=== PATIENT | male | born 1995 | race Caucasian/White ===

== ENCOUNTER 2021-01-05 09:41 | Inpatient (IN) | payer BC ==
[~2021-01-05] VITALS: Ht 180.3 cm; Wt 77.1 kg
--- NOTE | 2021-01-05 09:54 | NUR ---
patient came in the er c/o abd pain, 7/10 pain scale. On room air, breathing evenly and unlabored, Connected to the monitor and pulse ox. Kept comfortable, will continue to monitor accordingly.
--- NOTE | 2021-01-05 09:55 | NUR ---
URINE SPECIMEN COLLECTED AND SENT TO LAB.
--- NOTE | 2021-01-05 09:56 | NUR ---
IV started on the RAC G18, blood drawned and sent to lab.
[2021-01-05] MEDS ORDERED: KETOROLAC TROMETHAMINE 15 MG/ML VIAL ONE (10:16)
[2021-01-05 10:29] LABS: BASOPHILS # (AUTO) 0.1 K/uL (0.0-0.2); BASOPHILS % (AUTO) 0.9 % (0.0-2.0); EOSINOPHILS % (AUTO) 2.2 % (0.0-6.0); HEMATOCRIT 44 % (39-51); HEMOGLOBIN 14.7 g/dL (13.5-17.5); LYMPHOCYTES # (AUTO) 0.8 K/uL (0.8-4.8); LYMPHOCYTES % (AUTO) 9.6 % (20.0-44.0); MEAN CORPUSCULAR HGB CONC 34 g/dl (31.0-36.0); MEAN CORPUSCULAR VOLUME 87 fL (80-96); MONOCYTES # (AUTO) 0.6 K/uL (0.1-1.30); MONOCYTES % (AUTO) 6.5 % (2.0-12.0); NEUTROPHILS % (AUTO) 80.8 % (43.0-81.0); PLATELET COUNT (AUTO) 223 K/uL (150-450); RED BLOOD CELL COUNT(AUTO) 5.05 MIL/uL (4.5-6.0); WHITE BLOOD COUNT (AUTO) 8.7 K/uL (4.3-11.0)
[2021-01-05] MEDS ORDERED: KETOROLAC TROMETHAMINE INJ 30 MG/ML VIAL IV ONE (10:30)
[2021-01-05] MEDS ORDERED: IV NS 0.9% 250 ML IV ONE (10:34)
[2021-01-05] MEDS ORDERED: IOHEXOL-300 100 ML VIAL IV ONE (10:34)
[2021-01-05 10:35] LABS: CALCIUM, SERUM 9.4 mg/dL (8.5-10.1); CARBON DIOXIDE 30 mmol/L (21-32); CHLORIDE 103 mmol/L (98-107); CREATININE 0.9 mg/dL (0.6-1.3); GLUCOSE 96 mg/dL (74-106); POTASSIUM 4.2 mmol/L (3.5-5.1); SODIUM SERUM 140 mmol/L (136-145); UREA NITROGEN, BLOOD 11 mg/dL (7-18)
[2021-01-05 10:41] LABS: ALANINE AMINOTRANSFERASE 20 U/L (12-78); ALBUMIN 4.3 g/dL (3.4-5.0); ALKALINE PHOSPHATASE 69 U/L (46-116); ASPARTATE AMINOTRANSFERASE 14 U/L (15-37); BILIRUBIN,DIRECT 0.2 mg/dL (0.0-0.2); BILIRUBIN,TOTAL 0.9 mg/dL (0.2-1.0); LIPASE 71 U/L (73-393); TOTAL PROTEIN, SERUM 8.1 g/dL (6.4-8.2)
--- NOTE | 2021-01-05 10:46 | NUR ---
PT IS WHEELED TO CT SCAN VIA [facility].
--- NOTE | 2021-01-05 11:32 | NUR ---
MOVE SHEET SUBMITTED AND CALLED FOR MS BED.
[2021-01-05] MEDS ORDERED: PIPERACILLIN /TAZOBACTAM 3.375 G in IV D5W 50 ML IV ONE (12:00)
--- NOTE | 2021-01-05 12:17 | NUR ---
covid swab collected and sent to lab.
[2021-01-05 12:39] LABS: BILIRUBIN,URINE SMALL (NEGATIVE); COLOR,URINE YELLOW (YELLOW); LEUKOCYTE ESTERASE ,URINE Negative (NEGATIVE); NITRITE, URINE Negative (NEGATIVE); PH,URINE 5.5 (5.0-8.0); PROTEIN,URINE 30 mg/dl (NEGATIVE); UGLUCOSE Negative (NEGATIVE); UROBILINOGEN,URINE 0.2 EU/dL (0.2)
--- NOTE | 2021-01-05 12:46 | NUR ---
[facility] PAGED
--- NOTE | 2021-01-05 12:47 | NUR ---
Supriya herring in [facility] - 01/05/21 at 1248 by MARLON CALLED SURGERY ON V
--- NOTE | 2021-01-05 12:48 | NUR ---
SURGERY PARIMUTUEL CLERK CALLED AND SPEAKING WITH TEDDY GOMEZ
--- NOTE | 2021-01-05 12:48 | NUR ---
[facility] PAGED. AWAITING HOSPITALIST CALL BACK. (JANIA LOWRY)
[2021-01-05 12:56] LABS: BACTERIA,URINE None seen /HPF (None Seen); WBC,URINE NONE SEEN /HPF (0-3)
--- NOTE | 2021-01-05 13:00 | NUR ---
MS/RN RECEIVING NOTES RECEIVED PATIENT A TRANSFER FROM ER VIA [facility]. ADMITTED TO [facility]. PATIENT IS ALERT AND ORIENTED X4, ABLE TO MAKE NEEDS KNOWN. AMBULATORY. SKIN IS INTACT. PATIENT IS STABLE ON ROOM AIR. SOME DISCOMFORTS REPORTED ON THE LOWER ABDOMEN. IV ACCESS ON RIGHT AC #18G IS INTACT AND PATENT ON SALINE LOCK. ORIENTED PATIENT TO THE FACILITY. EDUCATED PATIENT REGARDING ACUTE APPENDICITIS DIAGNOSIS. PATIENT ABLE TO VERBALIZED UNDERSTANDING. SAFETY PRECAUTIONS OBSERVED: BED LOCKED ON LOWEST POSITION, SIDE RAILS UP X2, CALL LIGHT WITHIN REACH. WILL MONITOR.
--- NOTE | 2021-01-05 13:11 | NUR ---
GOT BED 329-2
--- NOTE | 2021-01-05 13:27 | NUR ---
wheeled patient via gurney accompanied by EMT in no distress. RN assigned to patient at bedside to assume care.
[2021-01-05 13:40] VITALS: BP 123/67
[2021-01-05] MEDS ORDERED: BUPIVACAINE MPF 0.5% W/EPI INJ 30 ML VIAL ONE (14:27)
--- NOTE | 2021-01-05 14:27 | NUR ---
MS/RN NOTES- SURGERY PATIENT TRANSFERRED TO SURGERY UNIT FOR LAPAROSCOPIC APPENDECTOMY POSSIBLE OPEN
[2021-01-05] MEDS ORDERED: FENTANYL PF 100MCG/2ML AMPUL ONE (14:28)
[2021-01-05] MEDS ORDERED: MIDAZOLAM HCL 2 MG/2ML VIAL ONE (14:29)
[2021-01-05] MEDS ORDERED: MORPHINE SULFATE INJ 2 MG/ML DISP.SYRIN IV PRN ×2 (14:30→16:30)
[2021-01-05] MEDS ORDERED: ONDANSETRON HCL/PF 4 MG/2 ML VIAL IVP PRN ×2 (14:30→16:30)
[2021-01-05] MEDS ORDERED: GLYCOPYRROLATE 0.2 MG/ML VIAL ONE (15:14)
--- NOTE | 2021-01-05 16:30 | NUR ---
MS/RN NOTES PATIENT CAME BACK FROM SURGERY: S/P LAPAROSCOPIC APPENDECTOMY, OPEN WITH DR. HALL. 3 SURGICAL SITES NOTED ON THE ABDOMEN COVERED IN DRESSING. PATIENT IS ALERT AND ORIENTED X4, ABLE TO MAKE NEEDS KNOWN. STABLE ON ROOM AIR WITH O2 SAT READING OF 100%. V/S TAKEN FOLLOWS: BP-113/65, HR-67, RR-18, T-97.5. SOME DISCOMFORTS NOTED. AMBULATE OUT OF BED TOLERATED AND PAIN MANAGEMENT PER MD ORDER. WILL CONTINUE TO MONITOR PATIENT.
[2021-01-05] MEDS: HYDROCODONE/APAP 5/325MG TABLET PO PRN ×2 (19:31→23:12)
--- NOTE | 2021-01-05 19:40 | NUR ---
MS/RN CLOSING NOTES PATIENT IS STABLE AT THIS TIME. ALL NEEDS MET. WILL ENDORSE TO THE NEXT SHIFT FOR BEATA.
--- NOTE | 2021-01-05 19:55 | NUR ---
MS RN OPENING NOTES RECEIVED PT IN BED, AWAKE. AOx4. ABLE TO MAKE NEEDS KNOWN. ON RA AND TOLERATING WELL. NO SOB NOTED. NO S/SX OF RESPIRATORY DISTRESS NOTED. IV ACCESS IN R AC #18G. COMPLAINTS OF 6/10 PAIN. ADMINISTERED NORCO @ 1931 PER MD ORDER. SAFETY PRECAUTIONS IN PLACE: BED IN LOWEST, LOCKED POSITION, SIDERAILS UPx2, AND BRAKES ON. TABLE AND CALL LIGHT WITHIN REACH. WILL CONTINUE TO MONITOR. Addendum: 01/06/21 at 0025 by TARAH BRIGGS RN 3 BANDAGES ON LOWER ABDOMEN S/P LAPAROSCOPIC APPENDECTOMY. BANDAGES ARE INTACT, CLEAN, AND DRY. NO SANGUINEOUS DRAINAGE PRESENT.
[2021-01-05] MEDS: IV 1/2NS 1000 ML 1,000 ML IV PRN (20:13)
[2021-01-05 20:18] VITALS: BP 117/60
--- NOTE | 2021-01-05 23:12 | NUR ---
ADMINISTERED NORCO FOR PAIN PER MD ORDER. WILL CONTINUE TO MONITOR. Addendum: 01/06/21 at 0701 by TARAH BRIGGS RN REPEATED NOTE. PLEASE IGNORE.
--- NOTE | 2021-01-05 23:12 | NUR ---
ADMINISTERED NORCO PER MD ORDER FOR PAIN. WILL CONTINUE TO MONITOR.
--- NOTE | 2021-01-06 07:00 | NUR ---
MS RN CLOSING NOTES PT IN BED, AWAKE. AOx4. ABLE TO MAKE NEEDS KNOWN. ON RA AND TOLERATING WELL. NO SOB NOTED. NO S/SX OF RESPIRATORY DISTRESS NOTED. IV ACCESS IN R AC #18G. TREATED PAIN THROUGHOUT SHIFT. ALL NEEDS MET. PT KEPT CLEAN AND DRY. SAFETY PRECAUTIONS IN PLACE: BED IN LOWEST, LOCKED POSITION, SIDERAILS UPx2, AND BRAKES ON. TABLE AND CALL LIGHT WITHIN REACH. WILL ENDORSE TO ONCOMING SHIFT.
[2021-01-06] MEDS: HYDROCODONE/APAP 5/325MG TABLET PO PRN (07:24)
--- NOTE | 2021-01-06 07:31 | NUR ---
MS RN OPENING NOTES RECEIVED PT IN BED AWAKE AND WATCHING TV. A/O X4. ABLE TO MAKE NEEDS KNOWN, C/O PAIN ON HIS OPERATIVE SITES ON ABDOMEN, 6/10 SCALE, PRN NORCO 5/325 PO GIVEN AT 0724. 3 DRESSINGS ON LOWER ABDOMEN C/D/I. ON ROOM AIR, TOLERATING WELL, BREATHING EVEN AND UNLABORED. IV ACCESS IN RAC #18G INTACT AND PATENT, IVF OF 1/2 NS @ 75ML/HR INFUSING WELL, NO S/S OF INFILTRATION NOTED. SAFETY PRECAUTIONS IN PLACE: BED IN LOWEST LOCKED POSITION, SIDE-RAILS UP x2, BEDSIDE TABLE AND CALL LIGHT WITHIN EASY REACH OF PT. WILL CONTINUE TO MONITOR.
[2021-01-06 08:00] VITALS: BP 109/61
[2021-01-06 08:12] LABS: BASOPHILS % (AUTO) 0.1 % (0.0-2.0); EOSINOPHILS % (AUTO) 0.2 % (0.0-6.0); HEMATOCRIT 40 % (39-51); HEMOGLOBIN 13.3 g/dL (13.5-17.5); LYMPHOCYTES # (AUTO) 1.2 K/uL (0.8-4.8); LYMPHOCYTES % (AUTO) 13.4 % (20.0-44.0); MEAN CORPUSCULAR HGB CONC 34 g/dl (31.0-36.0); MEAN CORPUSCULAR VOLUME 87 fL (80-96); MONOCYTES # (AUTO) 0.6 K/uL (0.1-1.30); MONOCYTES % (AUTO) 7.3 % (2.0-12.0); NEUTROPHILS # (AUTO) 6.9 K/uL (1.8-8.9); PLATELET COUNT (AUTO) 223 K/uL (150-450); RED BLOOD CELL COUNT(AUTO) 4.52 MIL/uL (4.5-6.0); WHITE BLOOD COUNT (AUTO) 8.8 K/uL (4.3-11.0)
[2021-01-06] MEDS ORDERED: PANTOPRAZOLE 40 MG VIAL IV SCH (09:00)
[2021-01-06 09:31] LABS: CALCIUM, SERUM 8.9 mg/dL (8.5-10.1); CREATININE 0.9 mg/dL (0.6-1.3); MAGNESIUM 2.2 mg/dL (1.8-2.4); POTASSIUM 4.7 mmol/L (3.5-5.1)
[2021-01-06] MEDS: IV 1/2NS 1000 ML 1,000 ML IV PRN (09:51)
[2021-01-06] MEDS ORDERED: CALCIUM CARBONATE 500 MG TAB.CHEW PO SCH (10:00)
[2021-01-06] MEDS ORDERED: HYDR-3972 PO (10:34)
--- NOTE | 2021-01-06 16:41 | NUR ---
RN DISCHARGED NOTES PT DISCHARGED HOME IN STABLE CONDITION. A/O X4. ABLE TO MAKE NEEDS KNOWN. 3 SURGICAL INCISION SITES IN LOWER ABDOMEN C/D/I. ALL BELONGINGS ACCOUNTED FOR AND SIGNED FORM. IV ACCESS ON RAC REMOVED WITH NO ACTIVE BLEEDING NOTED, DRY DRESSING APPLIED TO SITE. NAME ARMBAND REMOVED. HEALTH TEACHINGS/DISCHARGED INSTRUCTIONS GIVEN TO PT AND VERBALIZED UNDERSTANDING. PT LEFT UNIT @ 1620 VIA WHEELCHAIR ACCOMPANIED BY GUIDO GRIFFIN. PT'S MOM ZACHARIAH WILL TAKE PT HOME. CHARGE NURSE AWARE OF DISCHARGE.
== END 2021-01-06 16:20 | disposition home or self-care (01) | DRG 343 ==
LOC: ER 09:51 → MED 13:10
PROVIDERS: ADMIT Nurse Practitioner Family; ATTEND Nurse Practitioner Family
PROC: 0DTJ4ZZ Resection of Appendix, Percutaneous Endoscopic Approach (ICD-10-PCS; principal; 2021-01-05)
DX: K35.30 Acute appendicitis with localized peritonitis, without perforation or gangrene (principal); Z20.822 Contact with and (suspected) exposure to COVID-19; Z88.1 Allergy status to other antibiotic agents; Z98.890 Other specified postprocedural states
CPT/HCPCS: 36415; 71045-TC; 80048-TC; 80061-TC; 80076-TC; 81001; 83605-TC; 83690-TC; 83735-TC; 84484-TC; 85025-TC; 87040-TC; 87081-TC; 87086-TC; 88304-TC; C9113; C9803; G0378; J1100; J1885; J2250; J2405; J2543; J2704; J3010; J3490; J7030; J7050; J7060; Q9967